=== PATIENT | male | born 1950 | race Asian ===

== ENCOUNTER 2020-12-22 18:46 | Outpatient (CLI) | payer OTHER ==
--- NOTE | 2020-12-23 11:22 | Ultrasound Report ---
PROCEDURE: Duplex Lwr Ext Arterial Bilat INDICATIONS: AFIB,OTHER DISORDER OF CIRCULATORY SYSTEM TECHNIQUE: Color and pulse Doppler interrogation was performed of both lower extremity arterial systems, with im age documentation. COMPARISON: None FINDINGS: Right lower extremity: Common femoral artery: 57.9 cm/sec, with triphasic flow. Deep femoral artery: 28.6 cm/sec, with biphasic flow. Proximal superficial femoral artery: 61.1 cm/sec, with triphasic flow. Mid superficial femoral artery: 73.0 cm/sec, with triphasic flow. Distal superficial femoral artery: 60.9 cm/sec, with triphasic flow. Popliteal artery: 44.5 cm/sec, with triphasic flow. Posterior tibial artery: 44.4 cm/sec, with triphasic flow. Anterior tibial artery/dorsalis pedis: 37.6/22.8 cm/sec, with triphasic/biphasic flow. Rodriguez-scale imaging description: Mild calcific and soft atherosclerotic plaquing. Left lower extremity: Common femoral artery: 59.6 cm/sec, with triphasic flow. Deep femoral artery: 42.1 cm/sec, with biphasic flow. Proximal superficial femoral artery: 44.4 cm/sec, with triphasic flow. Mid superficial femoral artery: 63.8 cm/sec, with triphasic flow. Distal superficial femoral artery: 69.5 cm/sec, with triphasic flow. Popliteal artery: 42.9 cm/sec, with triphasic flow. Posterior tibial artery: 89 cm/s at the middle third, normal at the upper and lower thirds at 45 and 38 cm/s,, with triphasic flow. Anterior tibial artery/dorsalis pedis: 56/54 cm/sec, with triphasic/triphasic flow. Rodriguez-scale imaging description: Mild calcific and soft atherosclerotic plaquing IMPRESSION: No evidence of significant arterial insufficiency is found over the lower extremities bilaterally. No te is made of mild calcific and soft plaque involving these vessels. Focally of the left middle third of the posterior tibial artery there is elevated flow velocity above that above and below, indicatin g approximately a 50% stenosis at that site. Reviewed by: Rios Sanchez MD on 12/23/2020 11:21 AM PST Approved by: Rios Sanchez MD on 12/23/2020 11:21 AM PST Station ID: [id number]
== END 2020-12-22 18:47 | disposition home or self-care (01) ==
LOC: DI 18:46
PROVIDERS: ATTEND Family Medicine
DX: I70.203 Unspecified atherosclerosis of native arteries of extremities, bilateral legs (principal); I48.91 Unspecified atrial fibrillation
CPT/HCPCS: 93925

== ENCOUNTER 2020-12-28 09:33 | Emergency (ER) | payer OTHER ==
[2020-12-28 09:57] LABS: BASOPHILS # (AUTO) 0.1 10^3/uL (0.0-0.1); BASOPHILS % (AUTO) 0.8 %; EOSINOPHILS # (AUTO) 0.2 10^3/uL (0.0-0.7); EOSINOPHILS % (AUTO) 1.7 %; HCT - HEMATOCRIT 53.7 % (42.0-52.0); HGB - HEMOGLOBIN 17.8 g/dL (14.0-18.0); LYMPHOCYTES # (AUTO) 2.1 10^3/uL (1.5-3.5); LYMPHOCYTES % (AUTO) 24.3 %; MEAN CORPUSCULAR HEMOGLOBIN 31.7 pg (27.0-31.0); MEAN CORPUSCULAR HGB CONC 33.1 g/dL (32.0-36.0); MEAN CORPUSCULAR VOLUME 95.7 fL (80.0-94.0); MEAN PLATELET VOLUME 10.8 fL (7.4-11.4); MONOCYTES # (AUTO) 0.6 10^3/uL (0.0-1.0); MONOCYTES % (AUTO) 6.8 %; NEUTROPHILS # (AUTO) 5.7 10^3/uL (1.5-6.6); NEUTROPHILS % (AUTO) 66.1 %; PLT - PLATELET COUNT 239 10^3/uL (130-450); RED BLOOD COUNT 5.61 10^6/uL (4.70-6.10); RED CELL DISTRIBUTION WIDTH 13.5 % (12.0-15.0); WHITE BLOOD COUNT 8.7 x10^3/uL (4.8-10.8)
--- NOTE | 2020-12-28 10:08 | XRAY Report ---
PROCEDURE: Chest 1 View X-Ray INDICATIONS: Chest Pain TECHNIQUE: One view of the chest was acquired. COMPARISON: None. FINDINGS: Surgical changes and devices: None. Lungs and pleura: Suspect blunting of the left costophrenic angle. No pneumothorax. Lungs appear turner ar. Mediastinum: Mediastinal contours appear normal. Heart size is at the upper limits of normal. Bones and chest wall: No suspicious bony lesions. Overlying soft tissues appear unremarkable. IMPRESSION: Suspect blunting of the left costophrenic angle. This could be due to small pleural effusion. Reviewed by: Eyal Diaz MD on 12/28/2020 10:[address] [facility] Approved by: Eyal Diaz MD on 12/28/2020 10:[address] [facility] Station ID: [id number]
[2020-12-28 10:14] LABS: ALBUMIN 3.7 g/dL (3.2-5.5); BILIRUBIN,TOTAL 0.9 mg/dL (0.2-1.0); CREATININE 1.2 mg/dL (0.6-1.2); POTASSIUM 4.3 mmol/L (3.5-5.0); TOTAL PROTEIN 7.3 g/dL (6.7-8.2)
[2020-12-28 10:34] LABS: INR 3.3 (0.8-1.2); PT - PROTHROMBIN TIME 34.7 secs (9.9-12.6)
[2020-12-28] MEDS ORDERED: diltiaZEM INJ 5 MG/ML VIAL IVP STA (10:50)
[2020-12-28 13:02] VITALS: BP 109/77
--- NOTE | 2020-12-28 13:09 | ED Physician Documentation ---
History of Present Illness - Stated complaint Stated Complaint: SOA/WEAKNESS - Chief complaint Chief Complaint: Resp - History obtained from History obtained from: Patient, Family - Additonal information Additional information: Patient is brought to the emergency department by his for chief complaint of fatigue and not been able to lay flat. Patient was diagnosed with atrial fibrillation 2 weeks ago, that is unclear exactly how long he has been in A. fib. states that when she checks his pulse ox and blood pressure at home, she has noted his heart rate to be anywhere between 50s and low 100s. She feels that most of the time when she checks, it is less than 100. Patient denies chest pain. No cough. When he lays back, he feels a sense of chest pressure which is relieved when he sits up. states the patient's legs have been weak. She states he is generally a strong and healthy person. Patient was started on metoprolol 25 mg once every evening and Coumadin 2 weeks ago. He has an appointment with his family life counselor tomorrow. Review of Systems Ten Systems: 10 systems reviewed and negative Constitutional: reports: Fatigue, Weight Loss (Decreased appetite) Eyes: reports: Reviewed and negative Ears: reports: Reviewed and negative Nose: reports: Reviewed and negative Throat: reports: Reviewed and negative Cardiac: reports: Reviewed and negative Respiratory: reports: Reviewed and negative GI: reports: Reviewed and negative : reports: Reviewed and negative Skin: reports: Reviewed and negative Musculoskeletal: reports: Reviewed and negative Neurologic: reports: Reviewed and negative Psychiatric: reports: Reviewed and negative Endocrine: reports: Reviewed and negative Immunocompromised: reports: Reviewed and negative PD PAST MEDICAL HISTORY - Past Medical History Past Medical History: Yes Cardiovascular: Atrial fibrillation Neuro: Dementia - Past Surgical History Past Surgical History: No HEENT: Tonsil/Adenoidectomy - Present Medications Home Medications: Ambulatory Orders Medication Instructions Recorded Confirmed Metoprolol Succinate [Toprol Xl] 25 mg PO DAILY 12/28/20 12/28/20 Warfarin [Coumadin] 5 mg PO DAILY 12/28/20 12/28/20 - Allergies Allergies/Adverse Reactions: Allergies Allergy/AdvReac Type Severity Reaction Status Date / Time nut - unspecified Allergy Anaphylaxis Verified 12/28/20 09:35 - Social History Does the pt smoke?: No Smoking Status: Never smoker Does the pt drink ETOH?: No Does the pt have substance abuse?: No - Immunizations Immunizations are current?: Yes - POLST Patient has POLST: No PD ED PE NORMAL - Vitals Vital signs reviewed: Yes - General General: Alert and oriented X 3, No acute distress - HEENT HEENT: Atraumatic, PERRL, EOMI, Moist mucous membranes - Neck Neck: Supple, no meningeal sign - Cardiac Cardiac: No murmur, Strong equal pulses, Other (Tachycardic, irregular rhythm.) - Respiratory Respiratory: No respiratory distress, Clear bilaterally - Abdomen Abdomen: Soft, Non tender, Non distended - Back Back: No CVA TTP - Derm Derm: Normal color, Warm and dry, No rash - Extremities Extremities: No deformity, No edema, No calf tenderness / cord - Neuro Neuro: Alert and oriented X 3, No motor deficit, Other (Grossly intact.) - Psych Psych: Normal mood, Normal affect Results - Vitals Vitals: Vital Signs - 24 hr 12/28/20 12/28/20 12/28/20 09:35 09:57 10:22 Temperature 36 C L Heart Rate 142 H 128 H 139 H Respiratory 24 20 18 Rate Blood Pressure 108/78 104/86 H 125/87 H O2 Saturation 88 L 96 95 12/28/20 12/28/20 12/28/20 10:32 11:03 11:13 Temperature Heart Rate 127 H 124 H 88 Respiratory 20 22 22 Rate Blood Pressure 110/84 H 118/95 H 98/73 O2 Saturation 100 100 99 12/28/20 12/28/20 12/28/20 11:17 11:41 13:02 Temperature 36.3 C L Heart Rate 86 91 91 Respiratory 14 22 20 Rate Blood Pressure 101/78 91/77 109/77 O2 Saturation 100 98 100 Oxygen O2 Source Room air - EKG (time done) 0931 Rate: Rate (enter#) (142) Rhythm: Atrial fibrillation [place]: Normal Intervals: Other (NSIVCD) QRS: Normal Ischemia: Normal ST segments, Non specific changes Compare to prior EKG: Old EKG unavailable Computer interpretation: Agree with computer 1211 Rate: Rate (enter#) (87) Rhythm: Atrial fibrillation [place]: Normal QRS: Normal Ischemia: Normal ST segments, Non specific changes Other comments: Other comments (Frequent PVCs.) Compare to prior EKG: Changed from prior EKG (Rate improved to normal since earlier EKG today.) Computer interpretation: Agree with computer - Labs Labs: Laboratory Tests 12/28/20 12/28/20 12/28/20 09:45 09:45 09:45 WBC 8.7 RBC 5.61 Hgb 17.8 Hct 53.7 H MCV 95.7 H MCH 31.7 H MCHC 33.1 RDW 13.5 Plt Count 239 MPV 10.8 Neut # (Auto) 5.7 Lymph # (Auto) 2.1 [place] # (Auto) 0.6 Eos # (Auto) 0.2 Baso # (Auto) 0.1 Absolute Nucleated RBC 0.00 Nucleated RBC % 0.0 PT INR Sodium 144 Potassium 4.3 Chloride 106 Carbon Dioxide 22 Anion Gap 16.0 H BUN 27 H Creatinine 1.2 Estimated GFR (MDRD) 60 L Glucose 165 H Calcium 10.0 Total Bilirubin 0.9 AST 34 ALT 43 Alkaline Phosphatase 70 Troponin I High Sens 29.2 H* B-Natriuretic Peptide Total Protein 7.3 Albumin 3.7 Globulin 3.6 Albumin/Globulin Ratio 1.0 Lipase 28 12/28/20 12/28/20 12/28/20 09:45 10:25 12:13 WBC RBC Hgb Hct MCV MCH MCHC RDW Plt Count MPV Neut # (Auto) Lymph # (Auto) [place] # (Auto) Eos # (Auto) Baso # (Auto) Absolute Nucleated RBC Nucleated RBC % PT 34.7 H INR 3.3 H Sodium Potassium Chloride Carbon Dioxide Anion Gap BUN Creatinine Estimated GFR (MDRD) Glucose Calcium Total Bilirubin AST ALT Alkaline Phosphatase Troponin I High Sens 25.9 H* B-Natriuretic Peptide 1397 H Total Protein Albumin Globulin Albumin/Globulin Ratio Lipase - Rads (name of study) CXR Radiology: Final report received, EMP read indepedently, See rad report (Mild blunting of L costophrenic angle, c/w small pleural effusion.) PD MEDICAL DECISION MAKING - ED course Complexity details: reviewed results, re-evaluated patient, considered differential, d/w patient, d/w family ED course: The patient was worked up with a cardiac panel which demonstrated a troponin which was moderately elevated. Patient's BNP was also found to be 1300, but his chest x-ray was fairly unremarkable. He was given IV Cardizem 20 mg to which his heart rate did respond very well, coming down to the 80s to 90s. Patient reported feeling much better after this. Repeat troponin was somewhat less than the first, though still elevated. I suspected this was likely from strain from the A. fib with RVR, and I did not feel this represented an acute AR. Patient's EKGs both showed atrial fibrillation, but the second 1 demonstrated some PVCs after drop in heart rate. I felt the patient was stable for discharge home. He is not in acute CHF, but I do feel he likely needs better control of his heart rate at home. Since he has an appoint with his family life counselor tomorrow, I am not going to adjust any of his medications. I have, however, counseled the that if the patient has a heart rate sustained at 110 or above for more than 10 minutes, she should give him an extra 12.5 to 25 mg of his metoprolol. Departure - Departure Disposition: 01 Home, Self Care Clinical Impression: Atrial fibrillation with RVR Condition: Stable Instructions: ED Afib Comments: Your labs show some strain on the heart muscle from the fast heart rate, but there is no evidence of a heart attack. The lab we check to look for congestive heart failure (failure of heart to efficiently and fully pump blood forward) is elevated, but your chest x-ray does not show build-up of fluid in your lungs. This finding is also most likely related to the atrial fibrillation with fast heart rate. Your heart rate has responded nicely to the medicine that we gave you here. When you see your family life counselor tomorrow, please talk to them about whether your current regimen with the metoprolol continues a good long-term choice. I suspect that you have been running an elevated heart rate intermittently, but frequently for some time, and this is most likely at least in part because your symptoms. If your heart rate goes up above 110 again before you see your family life counselor, please take an extra 25 mg of your metoprolol to help bring this down. If you still feel bad, or if you develop chest pain, you should return to the emergency department. Discharge Date/Time: 12/28/20 13:37
== END 2020-12-28 13:37 | disposition home or self-care (01) ==
LOC: ED 09:33
DX: I48.91 Unspecified atrial fibrillation (principal); Z79.01 Long term (current) use of anticoagulants
CPT/HCPCS: 36415; 80053; 83690; 83880; 84484; 85025; 85610; 93005; 96374; 99284

== ENCOUNTER 2021-03-02 17:04 | Emergency (ER) | payer OTHER ==
--- OUTSIDE RECORDS SUMMARY | 2021-03-02 17:08 | EXTERNAL MEDICAL SUMMARY RPT | Continuity of Care Document ---
:1950 Demographics Phone Unavailable Preferred Language Unknown Marital Status Unknown Anglican Affiliation Unknown Race Unknown Ethnic Group Unknown Author Organization [facility] [address] [place] [address] Phone Problems date description facility [id number] Unspecified atrial fibrillation [facility] [id number] Shortness of Breath [facility] [id number] Atrial Fibrillation [facility]
--- OUTSIDE RECORDS SUMMARY | 2021-03-02 17:12 | EXTERNAL MEDICAL SUMMARY RPT | Continuity of Care Document ---
:1950 Demographics Phone Unavailable Preferred Language Unknown Marital Status Unknown Baptist Affiliation Unknown Race Unknown Ethnic Group Unknown Author Organization [facility] [address] [place] [address] Phone Problems date description facility [id number] Unspecified atrial fibrillation [facility] [id number] Shortness of Breath [facility] [id number] Atrial Fibrillation [facility]
--- NOTE | 2021-03-02 17:32 | ED Physician Documentation ---
History of Present Illness - Stated complaint Stated Complaint: POST OP COMPLICATIONS - Chief complaint Chief Complaint: General - History obtained from History obtained from: Patient, Family - History of Present Illness Timing: Today Pain level max: 0 Pain level now: 0 - Additonal information Additional information: 70-year-old male presents to the emergency department after having an ablation for atrial fibrillation yesterday at [facility] in [place]. Noticed that there was blood on the right thigh dressing this afternoon. 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 No chest pain. No shortness of breath. Nothing makes it better or worse. No current bleeding. Review of Systems Constitutional: denies: Fever, Chills Respiratory: denies: Cough PD PAST MEDICAL HISTORY - Past Medical History Past Medical History: Yes Cardiovascular: Atrial fibrillation Neuro: Dementia - Past Surgical History Past Surgical History: No HEENT: Tonsil/Adenoidectomy - Present Medications Home Medications: Ambulatory Orders Medication Instructions Recorded Confirmed Metoprolol Succinate [Toprol Xl] 25 mg PO DAILY 12/28/20 03/02/21 Apixaban [Eliquis] 5 mg PO DAILY 03/02/21 03/02/21 Atorvastatin [Lipitor] 10 mg PO DAILY 03/02/21 03/02/21 Donepezil [Aricept] 5 mg PO DAILY 03/02/21 03/02/21 Losartan [Cozaar] 25 mg PO DAILY 03/02/21 03/02/21 - Allergies Allergies/Adverse Reactions: Allergies Allergy/AdvReac Type Severity Reaction Status Date / Time nut - unspecified Allergy Anaphylaxis Verified 03/02/21 17:07 - Social History Does the pt smoke?: No Smoking Status: Never smoker Does the pt drink ETOH?: No Does the pt have substance abuse?: No - Immunizations Immunizations are current?: Yes - POLST Patient has POLST: No PD ED PE NORMAL - Vitals Vital signs reviewed: Yes - General General: Alert and oriented X 3, No acute distress - HEENT HEENT: Moist mucous membranes - Derm Derm: Warm and dry - Extremities Extremities: Other (R groin - No active bleeding. There is mild bruising around the right groin angiogram site..) - Neuro Neuro: Alert and oriented X 3 - Psych Psych: Normal mood, Normal affect Results - Vitals Vitals: Vital Signs - 24 hr 03/02/21 03/02/21 17:09 17:23 Temperature 37 C Heart Rate 71 73 Respiratory 16 16 Rate Blood Pressure 104/54 L 113/58 L O2 Saturation 99 98 Oxygen O2 Source Room air PD MEDICAL DECISION MAKING - ED course Complexity details: considered differential, d/w patient ED course: No active bleeding from the procedure site in the emergency department. Dermabond was used to seal the wound. A dressing was applied. We will have him follow-up with his doctor for further care. There is a small 0.1 cm dehiscence. Patient counseled regarding signs and symptoms for which I believe and urgent re-evaluation would be necessary. Patient with good understanding of and agreement to plan and is comfortable going home at this time This document was made in part using voice recognition software. While efforts are made to proofread this document, sound alike and grammatical errors may occur. Departure - Departure Disposition: 01 Home, Self Care Clinical Impression: Post-op bleeding Qualifiers: Surgical complication system/body Area: circulatory system Procedure type: cardiac catheterization Qualified Code(s): I97.610 - Postprocedural hemorrhage of a circulatory system organ or structure following a cardiac catheterization Condition: Good Instructions: ED Wound Check Post Op Bleeding Follow-Up: Yovanny Sampson DO [Primary Care Provider] - Within 3 Days Comments: Follow-up with your doctor in 3 to 4 days for wound check. Return if you worsen.
[2021-03-02 18:05] VITALS: BP 102/64
== END 2021-03-02 18:05 | disposition home or self-care (01) ==
LOC: ED 17:04
DX: I97.610 Postprocedural hemorrhage of a circulatory system organ or structure following a cardiac catheterization (principal); Y84.0 Cardiac catheterization as the cause of abnormal reaction of the patient, or of later complication, without mention of misadventure at the time of the procedure; I48.91 Unspecified atrial fibrillation; Z79.01 Long term (current) use of anticoagulants
CPT/HCPCS: 99281; 99284

== ENCOUNTER 2022-12-21 18:09 | Emergency (ER) | payer OTHER ==
[2022-12-21] MEDS ORDERED: fentaNYL 100 MCG/2 ML VIAL IVP STA (18:32)
[2022-12-21] MEDS ORDERED: SODIUM CHLORIDE 0.9% 1,000 ML IV STA (18:33)
[2022-12-21] MEDS ORDERED: fentaNYL 100 MCG/2 ML VIAL ONE (18:34)
[2022-12-21 18:42] LABS: BASOPHILS % (AUTO) 0.3 %; EOSINOPHILS # (AUTO) 0.1 10^3/uL (0.0-0.7); EOSINOPHILS % (AUTO) 1.1 %; HCT - HEMATOCRIT 47.3 % (42.0-52.0); HGB - HEMOGLOBIN 15.7 g/dL (14.0-18.0); LYMPHOCYTES # (AUTO) 2.1 10^3/uL (1.5-3.5); LYMPHOCYTES % (AUTO) 21.7 %; MEAN CORPUSCULAR HEMOGLOBIN 31.2 pg (27.0-31.0); MEAN CORPUSCULAR HGB CONC 33.2 g/dL (32.0-36.0); MEAN PLATELET VOLUME 10.4 fL (7.4-11.4); MONOCYTES # (AUTO) 0.6 10^3/uL (0.0-1.0); MONOCYTES % (AUTO) 6.4 %; NEUTROPHILS # (AUTO) 6.9 10^3/uL (1.5-6.6); NEUTROPHILS % (AUTO) 70.3 %; PLT - PLATELET COUNT 212 10^3/uL (130-450); RED BLOOD COUNT 5.03 10^6/uL (4.70-6.10); RED CELL DISTRIBUTION WIDTH 13.1 % (12.0-15.0); WHITE BLOOD COUNT 9.9 x10^3/uL (4.8-10.8)
--- NOTE | 2022-12-21 18:49 | ED Physician Documentation ---
History of Present Illness - Stated complaint Stated Complaint: AFIB,LBP,HEART RACING - Chief complaint Chief Complaint: Cardiac - Additonal information Additional information: 72-year-old male presents the emergency department for evaluation of tachycardia feeling faint and dizzy. He does have a history of atrial fibrillation for which he is anticoagulated on Eliquis. Takes metoprolol for rate control as well as lisinopril. Most of the history is provided by patient's as he does have a history of dementia. On presentation to the emergency department however he does have a wide-complex tachycardia with a rate of 240. Initial blood pressure was 80/40. Patient was brought back emergently to the emergency department. IV was rapidly established and the patient was administered 50 mics of fentanyl IV. He remained alert thr oughout and with a pulse. However given the wide-complex tachycardia he was synchronized cardioversion with 200 Joules of electricity. He had immediate resolution of the V. tach and showed a sinus rhythm in the 80s. Review of Systems Unable to obtain: Dementia, Other (unstable on presentation) PD PAST MEDICAL HISTORY - Past Medical History Cardiovascular: Atrial fibrillation Neuro: Dementia - Past Surgical History Past Surgical History: No HEENT: Tonsil/Adenoidectomy - Present Medications Home Medications: Ambulatory Orders Medication Instructions Recorded Confirmed Metoprolol Succinate [Toprol Xl] 25 mg PO DAILY 12/28/20 03/02/21 Apixaban [Eliquis] 5 mg PO DAILY 03/02/21 03/02/21 Atorvastatin [Lipitor] 10 mg PO DAILY 03/02/21 03/02/21 Donepezil [Aricept] 5 mg PO DAILY 03/02/21 03/02/21 Losartan [Cozaar] 25 mg PO DAILY 03/02/21 03/02/21 - Allergies Allergies/Adverse Reactions: Allergies Allergy/AdvReac Type Severity Reaction Status Date / Time nut - unspecified Allergy Anaphylaxis Verified 03/02/21 17:07 - Social History Does the pt smoke?: No Smoking Status: Never smoker Does the pt drink ETOH?: No Does the pt have substance abuse?: No - Immunizations Immunizations are current?: Yes - POLST Patient has POLST: No PD ED PE EXPANDED - General General: Alert, No acute distress - Cardiac Cardiac: Radial strong equal, Femoral strong equal, Cap refill < 2 sec, Other (Initial wide-complex tachycardia V. tach). No: Pedal strong equal (Dusky appearing bilateral lower extremities which is at baseline per .) - Respiratory Respiratory: Clear to ausultation galilea. No: Distress, Labored - Abdomen Abdomen: Normal Bowel sounds. No: Tender to palpation - Derm Derm: Normal color, Warm and dry - Neuro Neuro: Alert and Oriented X 3, CNII-XII intact - GCS Eye Opening: Spontaneous Motor: Obeys Commands Verbal: Oriented Total: 15 Results - Vitals Vitals: Vital Signs - 24 hr 12/21/22 12/21/22 12/21/22 18:17 18:50 19:09 Temperature 36 C L Heart Rate 215 H 88 89 Respiratory 18 19 16 Rate Blood Pressure 83/55 L 104/79 100/74 O2 Saturation 98 100 99 12/21/22 12/21/22 12/21/22 20:03 20:34 21:00 Temperature 36.6 C Heart Rate 84 86 75 Respiratory 13 23 16 Rate Blood Pressure 113/78 96/69 105/82 H O2 Saturation 100 99 100 Oxygen O2 Source Room air - EKG (time done) 1825 Rate: Rate (enter#) (239) Rhythm: V tach Computer interpretation: Agree with computer (Ventricular tachycardia) 1840 Rate: Rate (enter#) (83) Rhythm: NSR Intervals: Normal AR. No: Prolonged QT QRS: Normal Ischemia: Normal ST segments Compare to prior EKG: Changed from prior EKG (previous showed v-tach and a-fib) Computer interpretation: Agree with computer - Labs Labs: Laboratory Tests 12/21/22 12/21/22 12/21/22 18:30 18:30 18:30 WBC 9.9 RBC 5.03 Hgb 15.7 Hct 47.3 MCV 94.0 MCH 31.2 H MCHC 33.2 RDW 13.1 Plt Count 212 MPV 10.4 Neut # (Auto) 6.9 H Lymph # (Auto) 2.1 Sutter # (Auto) 0.6 Eos # (Auto) 0.1 Baso # (Auto) 0.0 Absolute Nucleated RBC 0.00 Nucleated RBC % 0.0 PT 17.2 H INR 1.6 H D-Dimer > 1050.0 H Sodium 139 Potassium 4.4 Chloride 103 Carbon Dioxide 25 Anion Gap 11.0 BUN 19 Creatinine 1.1 Estimated GFR (MDRD) 65 L Glucose 156 H Calcium 9.4 Phosphorus 3.4 Magnesium 2.0 Total Bilirubin 0.9 AST 55 H ALT 50 Alkaline Phosphatase 60 Troponin I High Sens Total Protein 7.6 Albumin 4.2 Globulin 3.4 Albumin/Globulin Ratio 1.2 Lipase 41 Nasal Adenovirus (PCR) Nasal B. parapertussis DNA (PCR) Nasal Coronavir 229E PCR Nasal Coronavir HKU1 PCR Nasal Coronavir NL63 PCR Nasal Coronavir OC43 PCR Nasal Enterovir/Rhinovir PCR Nasal Influenza B PCR Nasal Influenza A PCR Nasal Parainfluen 1 PCR Nasal Parainfluen 2 PCR Nasal Parainfluen 3 PCR Nasal Parainfluen 4 PCR Nasal RSV (PCR) Nasal B.pertussis DNA PCR Nasal C.pneumoniae (PCR) Duc Human Metapneumo PCR Nasal M.pneumoniae (PCR) Nasal SARS-CoV-2 (PCR) 12/21/22 12/21/22 12/21/22 18:30 19:38 19:54 WBC RBC Hgb Hct MCV MCH MCHC RDW Plt Count MPV Neut # (Auto) Lymph # (Auto) Sutter # (Auto) Eos # (Auto) Baso # (Auto) Absolute Nucleated RBC Nucleated RBC % PT INR D-Dimer Sodium Potassium Chloride Carbon Dioxide Anion Gap BUN Creatinine Estimated GFR (MDRD) Glucose Calcium Phosphorus Magnesium Total Bilirubin AST ALT Alkaline Phosphatase Troponin I High Sens 49.0 H* 47.0 H* Total Protein Albumin Globulin Albumin/Globulin Ratio Lipase Nasal Adenovirus (PCR) NOT DETECTED Nasal B. parapertussis DNA (PCR) NOT DETECTED Nasal Coronavir 229E PCR NOT DETECTED Nasal Coronavir HKU1 PCR NOT DETECTED Nasal Coronavir NL63 PCR NOT DETECTED Nasal Coronavir OC43 PCR NOT DETECTED Nasal Enterovir/Rhinovir PCR NOT DETECTED Nasal Influenza B PCR NOT DETECTED Nasal Influenza A PCR NOT DETECTED Nasal Parainfluen 1 PCR NOT DETECTED Nasal Parainfluen 2 PCR NOT DETECTED Nasal Parainfluen 3 PCR NOT DETECTED Nasal Parainfluen 4 PCR NOT DETECTED Nasal RSV (PCR) NOT DETECTED Nasal B.pertussis DNA PCR NOT DETECTED Nasal C.pneumoniae (PCR) NOT DETECTED Duc Human Metapneumo PCR NOT DETECTED Nasal M.pneumoniae (PCR) NOT DETECTED Nasal SARS-CoV-2 (PCR) NOT DETECTED PD Medical Decision Making - ED course Complexity details: reviewed results, re-evaluated patient, considered differential, d/w patient, d/w strategy planning consultant (Dr. Matt Fry) ED course: 72-year-old male who has a history of A-fib with RVR previously ablated rate controlled on metoprolol presents the emergency department for evaluation of acute onset tachycardia and dizziness. He did undergo a left axillary Cystex to me this afternoon. On presentation the patient had a racing heart rate with a palpable pulse at 240. When initially placed on the monitor he was noted to be in wide-complex tachycardia. Rapid IV was established and the patient was administered 50 of fentanyl. However given the wide-complex tachycardia he did undergo immediate synchronized cardioversion with 200 J of electricity. He immediately cardioverted to sinus rhythm. His initial blood pressure was 80/30 but upon cardioversion was 100/70. He was mentating normally throughout. We did obtain a CBC and electrolytes which per my interpretation showed no acute worrisome findings. However his initial troponin was 49. This likely represents a demand ischemia. I did speak with on-call instructional leader at [facility] Dr. Gutierrez. He tells me that the patient previously has had an ejection fraction of 40% given the new sustained V. tach it is important to consider an ischemic work-up in this patient and/or consider an AICD or defibrillator implantation. He darren ponce does tell me the patient had a coronary work-up in 2020 that showed normal coronary arteries. He does recommend the patient be transferred to [facility]. He has been accepted. He would recommend the patient be placed on amiodarone 1 mg/min. He does not recommend a loading dose. I have discussed the plan to transfer with the patient and his and they are in agreement. He will go via ALS. He is hemodynamically stable at this time and I do not feel that air transport is warranted though should his condition change we would initiate [facility]. Bed pending negative COVID testing. 2039: I have spoken with Dr. De La Rosa hospitalist at [facility]. He graciously excepts the patient in transfer Patient will be signed out to my nighttime colleague to follow-up on any events pending transfer to [facility] for further treatment of his sustained V. tach - Critical Care Time(min): 45 Time Includes: Direct patient care, Review records, Document care, Coordinate care Data interpretation: Labs Procedures included in critical care time: See progress note Procedures excluded from critical care time: See progress note Departure - Departure Disposition: 02 Transfer Acute Care Hosp Clinical Impression: Ventricular tachycardia, History of atrial fibrillation, History of cardioversion
[2022-12-21 18:54] LABS: ALBUMIN 4.2 g/dL (3.2-5.5); ALBUMIN/GLOBULIN RATIO 1.2 (1.0-2.2); BILIRUBIN,TOTAL 0.9 mg/dL (0.2-1.0); CALCIUM 9.4 mg/dL (8.5-10.3); CREATININE 1.1 mg/dL (0.6-1.2); PHOSPHORUS 3.4 mg/dL (2.5-4.6); POTASSIUM 4.4 mmol/L (3.5-5.0); TOTAL PROTEIN 7.6 g/dL (6.7-8.2)
[2022-12-21 19:07] LABS: INR 1.6 (0.8-1.2); PT - PROTHROMBIN TIME 17.2 secs (9.9-12.6)
--- NOTE | 2022-12-21 19:18 | XRAY Report ---
PROCEDURE: Chest 1 View X-Ray INDICATIONS: Chest Pain TECHNIQUE: One view of the chest was acquired. COMPARISON: Chest radiograph 12/28/2020 FINDINGS: Lungs and pleura: No pleural effusions or pneumothorax. Lungs are clear. Mediastinum: Mediastinal contours appear normal. Heart size is normal. Bones and chest wall: Nonspecific soft tissue gas present about the left lower neck and left axilla IMPRESSION: Nonspecific soft tissue gas present about the left lower neck and left axilla. Skin rené are prese nt at the left axilla. No definite pneumothorax identified. Reviewed by: Earl Davis MD on 12/21/2022 7:17 PM PST Approved by: Earl Davis MD on 12/21/2022 7:17 PM PST Station ID: [id number]
[2022-12-21 19:31] LABS: D-DIMER > 1050.0 ng/mL (200.0-255.0)
[2022-12-21] MEDS ORDERED: AMIODARONE 360 MG/200 ML 200 ML IV ONE (19:48)
[2022-12-21] MEDS ORDERED: AMIODARONE 360 MG/200 ML 200 ML IV SCH ×2 (20:13→21:00)
[2022-12-21 20:57] LABS: CORONAVIRUS 229E-RESP PCR NOT DETECTED; CORONAVIRUS HKU1-RESP PCR NOT DETECTED; CORONAVIRUS NL63-RESP PCR NOT DETECTED; CORONAVIRUS OC43-RESP PCR NOT DETECTED; HUMAN METAPNEUMOVIRUS NOT DETECTED; INFLUENZA A- RESP PCR PANEL NOT DETECTED; INFLUENZA B - RESP PCR PANEL NOT DETECTED; PARAINFLUENZA VIRUS 1 NOT DETECTED; RHINOVIRUS/ENTEROVIRUS NOT DETECTED; SARS-CoV-2 -RESP PCR PANEL NOT DETECTED
[2022-12-21 20:58] LABS: B. PARAPERTUSSIS- RESP PCR PAN NOT DETECTED; B. PERTUSSIS- RESP PCR PANEL NOT DETECTED; C. PNEUMONIAE- RESP PCR PANEL NOT DETECTED; M. PNEUMONIAE- RESP PCR PANEL NOT DETECTED; PARAINFLUENZA VIRUS 2 NOT DETECTED; PARAINFLUENZA VIRUS 3 NOT DETECTED; PARAINFLUENZA VIRUS 4 NOT DETECTED; RSV- RESP PCR PANEL NOT DETECTED
[2022-12-21 21:53] VITALS: BP 107/83
--- NOTE | 2023-01-09 08:54 | ED Physician Documentation ---
ED Addendum - Addendum Addendum: 01/09/23 08:50 This patient was evaluated by my colleague, ALDEN Manrique; please see her note for detailed H+P. ALDEN Manrique has already discussed this case with cardiology as well as hospitalist at [facility] where he has been excepted. Given that patient presented with hypotension associated with ventricular tachycardia, the purpose of informing me about this patient was that he was pending the transfer at the time of ALDEN Manrique's end of shift, and that I would only need to be involved should he have any recurrence of either the hypotension or any concerning arrhythmias. Patient was transferred shortly after the end of ALDEN Manrique's shift, and there will was no recurrence of the hypotension, dysrhythmias; thus, I was not involved in this patient's care and I defer to the clinical impression noted on ALDEN Manrique's H&P.
== END 2022-12-21 22:16 | disposition short-term general hospital (02) ==
LOC: ED 18:09
DX: I47.20 Ventricular tachycardia, unspecified (principal); I48.91 Unspecified atrial fibrillation; Z79.01 Long term (current) use of anticoagulants; F03.90 Unspecified dementia, unspecified severity, without behavioral disturbance, psychotic disturbance, mood disturbance, and anxiety
CPT/HCPCS: 36415; 71045; 80053; 83690; 83735; 84100; 84484; 85025; 85379; 85610; 87633; 92960; 93005; 96361; 96374; 96375; 99291; J0282

== ENCOUNTER 2023-12-18 13:17 | Outpatient (CLI) | payer OTHER | END 2023-12-18 13:18 | disposition home or self-care (01) | LOC: RT 13:17 | PROVIDERS: ATTEND Nurse Practitioner | DX: Z51.81 Encounter for therapeutic drug level monitoring (principal); Z79.899 Other long term (current) drug therapy | CPT/HCPCS: 94010; 94729 ==